=== PATIENT | male | born 1945 | race Caucasian/White ===

== ENCOUNTER 2020-11-03 23:36 | Emergency (ER) | payer MEDICARE, OTHER ==
[2020-11-03] MEDS ORDERED: Acetaminophen/oxyCODONE 325-5 MG Tab PO ONE (23:37)
[2020-11-03] MEDS ORDERED: Cephalexin 500 MG Cap PO ONE (23:37)
--- NOTE | 2020-11-04 00:32 | CT ---
PROCEDURE INFORMATION: Exam: CT Left Lower Extremity Without Contrast; Lower Leg Exam date and time: 11/03/2020 11:50 PM Age: 75 years old Clinical indication: Injury or trauma; Fall; Blunt trauma; Lower leg; Left; Patient HX: HX lung CA; Additional info: Leg swelling TECHNIQUE: Imaging protocol: CT of the Left lower extremity without contrast was performed. Exam focused on the lower leg. Radiation optimization: All CT scans at this facility use at least one of these dose optimization techniques: automated exposure control; mA and/or kV adjustment per patient size (includes targeted exams where dose is matched to clinical indication); or iterative reconstruction. COMPARISON: No relevant prior studies available. FINDINGS: Bones/joints: Bones appear mildly osteopenic. There is a partially ununited old fracture of the fibular shaft with mild apex lateral angulation. There is an old minimally angulated fracture of the tibial shaft. Mild degenerative changes seen in the knee. Ankle mortise appears well aligned. No evidence of fracture. Soft tissues: There is a large soft tissue structure in the anterior leg centered in the subcutaneous tissues that measures about 6.7 x 4.1 cm in transaxial dimensions and approximately 14 cm in the CC dimension. This finding is compatible with a hematoma given history of trauma. There is mild diffuse additional subcutaneous stranding compatible with edema. There is skin thickening seen in the imaged portion of the ankle also compatible with edema. IMPRESSION: 1. No evidence of acute osseous injury 2. Large subcutaneous hematoma seen anteriorly.
--- NOTE | 2020-11-04 00:33 | EDM.PDOC ---
ED HPI GENERAL MEDICAL PROBLEM - General Chief Complaint: Lower Extremity Injury/Pain Stated Complaint: FELL DOWN, LEFT LEG SWOLLEN Time Seen by Provider: 11/03/20 23:55 Source of Information: Reports: Patient History Limitations: Reports: No Limitations - History of Present Illness INITIAL COMMENTS - FREE TEXT/NARRATIVE: ED with c/o pain and swelling to left lower leg. Reports getting into boat this am and ffell unsure if hit against chair or part of boat. Swelling lateral , bruising, pain with weight bearing. Hx lung cancer, received chemo. No treatments past 4-6 months. Remote hx age 20 fracture to left lower leg. Diabetic, no on insulin. - Related Data Allergies Allergy/AdvReac Type Severity Reaction Status Date / Time No Known Allergies Allergy Verified 11/03/20 23:53 Home Meds: Home Meds Cyanocobalamin (Vitamin B-12) [Vitamin B-12] 1,000 mcg PO DAILY 11/04/20 [History] Gabapentin [Neurontin] 100 mg PO BEDTIME 11/04/20 [History] Metoprolol Succinate 50 mg PO DAILY 11/04/20 [History] Simvastatin 40 mg PO BEDTIME 11/04/20 [History] Verapamil [Calan SR] 240 mg PO DAILY 11/04/20 [History] metFORMIN [Glucophage] 1,000 mg PO BID 11/04/20 [History] Past Medical History HEENT History: Reports: Impaired Vision Cardiovascular History: Reports: Hypertension Respiratory History: Reports: COPD Musculoskeletal History: Reports: Arthritis Endocrine/Metabolic History: Reports: Diabetes, Type II Oncologic (Cancer) History: Reports: Lung Social & Family History - Family History Family Medical History: No Pertinent Family History - Tobacco Use Tobacco Use Status *Q: Unknown Ever Used Tobacco Second Hand Smoke Exposure: No - Caffeine Use Caffeine Use: Reports: Coffee - Recreational Drug Use Recreational Drug Use: No Review of Systems - Review of Systems Review Of Systems: Comprehensive ROS is negative, except as noted in HPI. ED EXAM, GENERAL - Physical Exam Exam: See Below Exam Limited By: No Limitations General Appearance: Alert, Mild Distress Eye Exam: Bilateral Eye: EOMI Ears: Normal External Exam Nose: Normal Inspection Throat/Mouth: Normal Inspection Head: Atraumatic, Normocephalic Neck: Normal Inspection Respiratory/Chest: No Respiratory Distress, Decreased Breath Sounds Cardiovascular: Normal Peripheral Pulses, Regular Rate, Rhythm GI/Abdominal: Normal Bowel Sounds, Soft Extremities: Pedal Edema (2+ bilateral), Leg Pain (left lateral upper calf large bruise, tender, 1cm fluid filled blister mid aspect.) Neurological: Alert, Oriented, Normal Cognition Psychiatric: Flat Affect Skin Exam: Warm, Dry, Ecchymosis (hematoma left lateral upper calf) Course - Vital Signs Last Recorded V/S: Last Vital Signs Temp 99.1 F 11/03/20 23:54 Pulse 110 H 11/03/20 23:54 Resp 18 11/03/20 23:54 BP 170/85 H 11/03/20 23:54 Pulse Ox 92 L 11/03/20 23:54 - Orders/Labs/Meds Labs: Laboratory Tests 11/04/20 11/04/20 11/04/20 Range/Units 00:17 00:17 00:17 WBC 9.7 (5.0-10.0) 10^3/uL RBC 4.23 L (4.6-6.2) 10^6/uL Hgb 11.8 L (14.0-18.0) g/dL Hct 36.9 L (40.0-54.0) % MCV 87.2 (80-100) fL MCH 27.9 (27.0-34.0) pg MCHC 32.0 L (33.0-35.0) g/dL Plt Count 191 (150-450) 10^3/uL Neut % (Auto) 74.6 (42.2-75.2) % Lymph % (Auto) 11.8 L (20.5-50.1) % [place] % (Auto) 11.0 H (2-8) % Eos % (Auto) 2.4 (1.0-3.0) % Baso % (Auto) 0.2 (0.0-1.0) % PT 10.4 (9.0-12.0) SEC INR 1.0 (0.9-1.2) Sodium 142 (136-145) mmol/L Potassium 4.2 (3.5-5.1) mmol/L Chloride 104 (98-107) mmol/L Carbon Dioxide 33 H (21-32) mmol/L Anion Gap 9.2 (7-13) mEq/L BUN 25 H (7-18) mg/dL Creatinine 0.87 (0.70-1.30) mg/dL Est Cr Clr Drug Dosing 80.54 mL/min Estimated GFR (MDRD) > 60 BUN/Creatinine Ratio 28.7 (No establ ref range) Glucose 142 H (70-99) mg/dL Calcium 8.7 (8.5-10.1) mg/dL Total Bilirubin 0.6 (0.2-1.0) mg/dL AST 12 L (15-37) U/L ALT 17 (16-63) U/L Alkaline Phosphatase 59 (46-116) U/L Total Protein 6.4 (6.4-8.2) g/dL Albumin 3.5 (3.4-5.0) g/dL Globulin 2.9 Albumin/Globulin Ratio 1.2 Meds: Medications Discontinued Medications Generic Name Dose Route Start Last Admin Trade Name Freq PRN Reason Stop Dose Admin Cephalexin Confirm 11/04/20 00:42 11/04/20 00:58 Cephalexin 500 Mg Cap Administered 11/04/20 00:43 Not Given Dose 1,000 mg .ROUTE .STK-MED ONE Cephalexin 500 mg 11/03/20 23:37 Cephalexin 500 Mg Cap PO 11/03/20 23:38 .STK-MED ONE Mupirocin Confirm 11/04/20 00:42 11/04/20 00:57 Mupirocin Oint 22 Gm Tube Administered 11/04/20 00:43 Not Given Dose 22 gm .ROUTE .STK-MED ONE Oxycodone/Acetaminophen Confirm 11/04/20 00:42 11/04/20 00:57 Acetaminophen/Oxycodone 325-5 Mg Tab Administered 11/04/20 00:43 Not Given Dose 2 tab .ROUTE .STK-MED ONE Oxycodone/Acetaminophen 1 tab 11/03/20 23:37 Acetaminophen/Oxycodone 325-5 Mg Tab PO 11/03/20 23:38 .STK-MED ONE - Re-Assessments/Exams Free Text/Narrative Re-Assessment/Exam: 0Results of CT discussed with patient and family. Recommend limited weight bearing, elevation and to follo wup if increased swelling or redness to extremity. Patient provieded with locations of local clinic in area. Departure - Departure Time of Disposition: 00:49 Disposition: Home, Self-Care 01 Condition: Good Clinical Impression: Contusion of left lower leg, initial encounter Fall Qualifiers: Encounter type: initial encounter Qualified Code(s): W19.XXXA - Unspecified fall, initial encounter - Discharge Information *PRESCRIPTION DRUG MONITORING PROGRAM REVIEWED*: No Instructions: Contusion, [id number] Forms: ED Department Discharge Additional Instructions: elevate ice rest weight bearing as tolerated walker- weight bearing as tolerated keflex 500mg one three times daily hydrocodone 5/325 one every 6 hours as needed 5/325 mupirocin ointment twice daily aileen wrap lower extremity clinic recheck , sooner if increased pain swelling or redness Sepsis Event Note (ED) - Evaluation Sepsis Screening Result: No Definite Risk
[2020-11-04 00:42] LABS: ANION GAP 9.2 mEq/L (7-13); CHLORIDE,CL 104 mmol/L (98-107); SODIUM,NA 142 mmol/L (136-145)
[2020-11-04] MEDS ORDERED: Mupirocin Oint 22 GM Tube ONE (00:42)
[2020-11-04] MEDS ORDERED: Acetaminophen/oxyCODONE 325-5 MG Tab ONE (00:42)
[2020-11-04] MEDS ORDERED: Cephalexin 500 MG Cap ONE (00:42)
== END 2020-11-04 00:57 | disposition home or self-care (01) ==
LOC: DL.ED 23:36
DX: S80.12XA Contusion of left lower leg, initial encounter (principal); J44.9 Chronic obstructive pulmonary disease, unspecified; I10 Essential (primary) hypertension; E11.9 Type 2 diabetes mellitus without complications; R60.0 Localized edema; Z79.84 Long term (current) use of oral hypoglycemic drugs; Z79.899 Other long term (current) drug therapy; W01.0XXA Fall on same level from slipping, tripping and stumbling without subsequent striking against object, initial encounter
CPT/HCPCS: 36415; 73700; 80053; 85025; 85610; 99283; 99284-25; A9270-GY